=== PATIENT | female | born 1990 | race Caucasian/White ===

== ENCOUNTER 2022-12-03 06:06 | Emergency (ER) | payer BC, SELFPAY ==
[2022-12-03] VITALS (24 sets, daily range): BP systolic 144–204; BP diastolic 84–130; PULSE 76–98; RESP 9–30; TEMP 36.8; O2SAT 96–100; BMI 30.2
--- NOTE | 2022-12-03 06:36 | ED.GENADULT ---
HPI - General Adult General Chief complaint: Dizziness Stated complaint: really dizzy and shaky Time Seen by Provider: 12/03/22 06:23 Source: patient Mode of arrival: Ambulatory History of Present Illness HPI narrative: Patient is a 32-year-old female who is here for evaluation of approximately 2 weeks of symptoms that include feeling dizzy and shaky and feeling like her head is full. She states it feels like she is hung over but she is not been drinking. She states she does feel some heaviness on her chest. No shortness of breath. No nausea or vomiting. No sore throat. No sinus congestion. No abdominal pain. No skin changes. No urinary symptoms. Has not tried anything for the symptoms prior to arrival. Review of Systems Review of Systems ROS Unobtainable: All systems reviewed & are unremarkable except as noted in HPI and below Exam Initial Vital Signs Initial Vital Signs: Vital Signs Temperature 98.2 F 12/03/22 06:15 Pulse Rate 98 H 12/03/22 06:15 Respiratory Rate 16 12/03/22 06:15 Blood Pressure 189/118 H 12/03/22 06:15 Pulse Oximetry 98 12/03/22 06:15 Oxygen Delivery Method Room Air 12/03/22 06:15 Const General: cooperative, comfortable and No ill appearing HENMT Head: normal to inspection and normocephalic Resp Effort & Inspection: normal respiratory effort Auscultation: clear to auscultation bilaterally Cardio Rate: regular rate Rhythm: regular rhythm GI Inspection: normal to inspection and non-distended Palpation: soft and No tender Skin General: no rashes or lesions noted Neuro General: patient alert, patient awake and moves all extremities Cognition: normal cognition Speech: speech normal Gait: normal gait Extrem General: normal to inspection and capillary refill normal Psych Appearance: grossly normal and well kempt Scores GCS [place] coma scale eye opening: Spontaneous [place] coma scale verbal response: Orientated Course Orders Ordered: ED Orders 12/03/22 06:24 Complete Blood Count AUTO DIFF Stat Comprehensive Metabolic Panel Stat Lipase Stat Test Serum,Qual Stat EKG-12 Lead Stat Sodium Chloride (Normal Saline 0.9%) 1,000 mls @ 1,000 mls/hr IV BOLUS ONE Stop: 12/03/22 07:23 Vital Signs Vital signs: Vital Signs - 8 hr 12/03/22 06:15 Temperature 98.2 F Pulse Rate 98 H Respiratory Rate 16 Blood Pressure 189/118 H Pulse Oximetry 98 Oxygen Delivery Method Room Air Medical Decision Making MDM Narrative Medical decision making narrative: Patient has somewhat vague symptoms. No fevers. Has a nonfocal exam. I do have low suspicion for CVA/TIA. Will obtain basic labs and an EKG. Care turned over to day provider to follow-up and disposition.
[2022-12-03] MEDS: SODIUM CHLORIDE 0.9% 1,000 ML 1000 ML IV (06:45)
[2022-12-03 07:45] LABS: Pregnancy Test Serum,Qual Negative (Negative)
[2022-12-03 07:46] LABS: Add Manual Diff / Slide Review NO; Alanine Aminotransferase 20 IU/L (<35); Albumin 4.2 g/dL (3.5-5.0); Albumin Globulin Ratio 1.3 (1.0-2.8); Alkaline Phosphatase 80 U/L (38-126); Aspartate Aminotransferase 22 IU/L (14-36); BUN Creatinine Ratio 13.8 (6-22); Basophils Absolute Auto 0 /uL (0-100); Basophils Percent Auto 0.5 % (0-2); Bilirubin Total 0.5 mg/dL (0.2-1.3); Blood Urea Nitrogen 8 mg/dL (7-17); Calcium 8.9 mg/dL (8.4-10.2); Carbon Dioxide 29 mmol/L (22-32); Chloride 103 mmol/L (98-107); Eosinophils Absolute Auto 200 /uL (0-450); Eosinophils Percent Auto 2.4 % (2-4); Estimated Glomerular Filt Rate > 60 mL/min (>60); Globulin 3.2 g/dL (1.7-4.1); Glucose 103 mg/dL (70-100); HEMOLYSIS < 15 (0-50); Hematocrit 41.3 % (36-46); Hemoglobin 14.1 g/dL (12.0-16.0); Lipase 46 U/L (23-300); Lymphocytes Absolute Auto 1600 /uL (1100-4500); Lymphocytes Percent Auto 21.4 % (25-40); Mean Corpuscular HGB Conc 34.2 % (30-36); Mean Corpuscular Hemoglobin 28.9 PG (26-34); Mean Corpuscular Volume 84.5 fL (80-100); Monocytes Absolute Auto 500 /uL (0-900); Neutrophils Absolute Auto 5300 /uL (1500-7000); Neutrophils Percent Auto 69.7 % (50-75); Platelet Count 221 X10^3/uL (150-400); Potassium 3.6 mmol/L (3.4-5.1); Red Blood Cell Count 4.89 X10^6/uL (4.0-5.2); Red Cell Distribution Width 13.4 % (11.6-14.8); Sodium 136 mmol/L (137-145); Total Protein 7.4 g/dL (6.3-8.2); White Blood Cell Count 7.7 X10^3/uL (4.5-11.0)
[2022-12-03] MEDS: LABETALOL 20 MG/4 ML SYRINGE IV (09:37)
== END 2022-12-03 10:15 | disposition home or self-care (01) ==
PROVIDERS: Emergency Medicine; Emergency Provider Emergency Medicine
DX: I10 Essential (primary) hypertension (principal); R07.9 Chest pain, unspecified
CPT/HCPCS: 36415; 80053; 81003; 83690; 84703; 85025; 93005; 96361; 96374; 99284

== ENCOUNTER 2023-01-03 20:01 | Emergency (ER) | payer BC, SELFPAY ==
[2023-01-03 20:04] VITALS: BP 166/95; PULSE 117; RESP 18; TEMP 36.6; O2SAT 98; BMI 30.2
[2023-01-03 20:42] LABS: Add Manual Diff / Slide Review NO; Basophils Absolute Auto 100 /uL (0-100); Basophils Percent Auto 0.5 % (0-2); Eosinophils Absolute Auto 0 /uL (0-450); Eosinophils Percent Auto 0.2 % (2-4); Hematocrit 41.5 % (36-46); Hemoglobin 14.1 g/dL (12.0-16.0); Lymphocytes Absolute Auto 1400 /uL (1100-4500); Lymphocytes Percent Auto 7.5 % (25-40); Mean Corpuscular HGB Conc 33.8 % (30-36); Mean Corpuscular Hemoglobin 28.5 PG (26-34); Mean Corpuscular Volume 84.2 fL (80-100); Monocytes Absolute Auto 800 /uL (0-900); Monocytes Percent Auto 4.1 % (3-14); Neutrophils Absolute Auto 16400 /uL (1500-7000); Neutrophils Percent Auto 87.7 % (50-75); Platelet Count 238 X10^3/uL (150-400); Red Blood Cell Count 4.94 X10^6/uL (4.0-5.2); Red Cell Distribution Width 13.2 % (11.6-14.8); White Blood Cell Count 18.7 X10^3/uL (4.5-11.0)
[2023-01-03] MEDS: DEXAMETHASONE 10 MG/ML VIAL IV (20:42)
[2023-01-03] MEDS: KETOROLAC 30 MG/ML VIAL 15 MG IV (20:42)
[2023-01-03] MEDS: SODIUM CHLORIDE 0.9% 1,000 ML 1000 ML IV (20:42)
[2023-01-03 21:04] LABS: BUN Creatinine Ratio 14.1 (6-22); Blood Urea Nitrogen 9 mg/dL (7-17); Calcium 9.2 mg/dL (8.4-10.2); Carbon Dioxide 26 mmol/L (22-32); Chloride 100 mmol/L (98-107); Estimated Glomerular Filt Rate > 60 mL/min (>60); Glucose 153 mg/dL (70-100); HEMOLYSIS < 15 (0-50); Potassium 3.3 mmol/L (3.4-5.1); Sodium 136 mmol/L (137-145)
[2023-01-03 21:06] LABS: Strep Grp A by PCR Rapid Negative (Negative)
[2023-01-04 00:10] VITALS: BP 138/92; PULSE 92; RESP 20; O2SAT 98
[2023-01-04] MEDS: AMOXICILLIN/CLAV 875/125 MG 1 TAB PO (00:12)
[2023-01-04 00:19] LABS: Monotest Negative (Negative)
--- NOTE | 2023-01-04 00:25 | ED.URI ---
HPI - URI/Sore Throat General Chief Complaint: Upper Respiratory Symptoms Stated Complaint: sore throat/ear pain/fever Time Seen by Provider: 01/03/23 20:19 Source: patient Mode of arrival: Ambulatory History of Present Illness HPI Narrative: 32-year-old nonsmoker presents with a few days of increasing sore throat had fever. She denies runny nose or cough. She has had strep in the past and states this feels similar. She denies nausea, vomiting or diarrhea. She states it hurts to swallow but does not feel like there is anything necessarily in the way or blocking her ability to swallow Related Data Previous Rx's Medication Instructions Recorded amlodipine 10 mg tablet 10 mg PO DAILY #30 tabs 12/03/22 amoxicillin 875 mg-potassium 1 tab PO Q12H #20 tabs 01/04/23 clavulanate 125 mg tablet Allergies Allergy/AdvReac Type Severity Reaction Status Date / Time No Known Drug Allergies Allergy Verified 01/04/23 00:11 Review of Systems Review of Systems Narrative: GENERAL: See HPI HEENT: See HPI RESPIRATORY: Denies dyspnea, cough, wheezing, hemoptysis, sputum. CARDIOVASCULAR: Denies chest pain, palpitations, orthopnea, edema, GASTROINTESTINAL: Denies nausea, vomiting, abdominal pain, diarrhea, constipation, melena. : Denies dysuria, frequency, incontinence, hematuria, urinary retention. MUSCULOSKELETAL: denies weakness, joint pain, or bony pain SKIN: Denies rash, skin lesions, or other NEUROLOGIC: Denies weakness, headache, numbness, change in speech, confusion, seizures, incoordination. PSYCHIATRIC: No concerning psychosocial issues. 12 point review of systems is negative except for those stated above Patient History Social History Smoking Status: Never smoker Smoking Status: Never smoker alcohol intake frequency: holidays/special occasions only Substance Use Type: does not use Exam Narrative Exam Narrative: GENERAL: [32] year old patient appears stated age. Well-developed patient, in mild distress. HEAD: Atraumatic. Normocephalic. EYES: Pupils equal round and reactive. Extraocular motions intact. No scleral icterus. No injection or drainage. ENT: Moist mucous membranes Nose without bleeding, purulent drainage. T tonsillar swelling with erythema and exudate, no evidence of mass effect, uvular pointing or suggestion of abscess NECK: Trachea midline. Tender anterior lymphadenopathy CARDIOVASCULAR: Regular rate and rhythm without murmurs, gallops, or rubs. RESPIRATORY: Clear to auscultation. Breath sounds equal bilaterally. No wheezes, rales, or rhonchi. GASTROINTESTINAL: Abdomen soft, non-tender, nondistended. EXTREMITIES: No edema or joint tenderness. BACK: Nontender without deformity or crepitance. No flank tenderness. NEURO: AOx3. SKIN: No rash or erythema of visible areas Initial Vital Signs Initial Vital Signs: Vital Signs Temperature 97.9 F 01/03/23 20:04 Pulse Rate 117 H 01/03/23 20:04 Respiratory Rate 18 01/03/23 20:04 Blood Pressure 166/95 H 01/03/23 20:04 Pulse Oximetry 98 01/03/23 20:04 Oxygen Delivery Method Room Air 01/03/23 20:04 Course Orders Ordered: ED Orders 01/03/23 20:10 Strep Grp A by PCR Rapid Stat Throat Culture Stat 01/03/23 20:30 Basic Metabolic Panel Stat Complete Blood Count AUTO DIFF Stat 01/04/23 00:00 Monotest Stat Discontinued Medications Amoxicillin/Clavulanate Potassium (Amoxicillin/Clav 875/125 Mg) 1 tab PO NOW ONE Stop: 01/04/23 00:01 Last Admin: 01/04/23 00:12 Dose: 1 tab Documented By: CHARLINE Dexamethasone (Dexamethasone 10 Mg/Ml Vial) 10 mg IV NOW ONE Stop: 01/03/23 20:20 Last Admin: 01/03/23 20:42 Dose: 10 mg Documented By: CHARLINE Sodium Chloride (Normal Saline 0.9%) 1,000 mls @ 1,000 mls/hr IV BOLUS ONE Stop: 01/03/23 21:12 Last Infusion: 01/03/23 22:12 Dose: 0 mls/hr Documented By: Admin: 01/03/23 20:42 Dose: 1,000 mls/hr Documented By: CHARLINE Ketorolac Tromethamine (Ketorolac 30 Mg/Ml Vial) 15 mg IV NOW ONE Stop: 01/03/23 20:20 Last Admin: 01/03/23 20:42 Dose: 15 mg Documented By: CHARLINE Reevaluation(s) Reevaluation #1: patient feeling much better after above. HR down to the 80s-90s Vital Signs Vital signs: Vital Signs - 8 hr 01/03/23 20:04 01/04/23 00:10 Temperature 97.9 F Pulse Rate 117 H 92 H Respiratory Rate 18 20 Blood Pressure 166/95 H 138/92 H Pulse Oximetry 98 98 Oxygen Delivery Method Room Air Room Air MDM - URI/Sore Throat Lab Data 01/03/23 20:30 01/03/23 20:30 Labs: Lab Results 01/03/23 01/03/23 01/03/23 Range/Units 20:10 20:30 20:30 WBC 18.7 H (4.5-11.0) X10^3/uL RBC 4.94 (4.0-5.2) X10^6/uL Hgb 14.1 (12.0-16.0) g/dL Hct 41.5 (36-46) % MCV 84.2 (80-100) fL MCH 28.5 (26-34) PG MCHC 33.8 (30-36) % RDW 13.2 (11.6-14.8) % Plt Count 238 (150-400) X10^3/uL Neut % (Auto) 87.7 H (50-75) % Lymph % (Auto) 7.5 L (25-40) % [place] % (Auto) 4.1 (3-14) % Eos % (Auto) 0.2 L (2-4) % Baso % (Auto) 0.5 (0-2) % Neut # (Auto) 42274 H (1436-7557) /uL Lymph # (Auto) 1400 (7259-0035) /uL [place] # (Auto) 800 (0-900) /uL Eos # (Auto) 0 (0-450) /uL Baso # (Auto) 100 (0-100) /uL Sodium 136 L (137-145) mmol/L Potassium 3.3 L (3.4-5.1) mmol/L Chloride 100 (98-107) mmol/L Carbon Dioxide 26 (22-32) mmol/L BUN 9 (7-17) mg/dL Creatinine 0.64 (0.52-1.04) mg/dL Estimated GFR > 60 (>60) mL/min BUN/Creatinine Ratio 14.1 (6-22) Glucose 153 H (70-100) mg/dL Calcium 9.2 (8.4-10.2) mg/dL Monoscreen (Negative) Group A Strep (PCR) Negative (Negative) 01/03/23 Range/Units 20:30 WBC (4.5-11.0) X10^3/uL RBC (4.0-5.2) X10^6/uL Hgb (12.0-16.0) g/dL Hct (36-46) % MCV (80-100) fL MCH (26-34) PG MCHC (30-36) % RDW (11.6-14.8) % Plt Count (150-400) X10^3/uL Neut % (Auto) (50-75) % Lymph % (Auto) (25-40) % [place] % (Auto) (3-14) % Eos % (Auto) (2-4) % Baso % (Auto) (0-2) % Neut # (Auto) (1955-2578) /uL Lymph # (Auto) (7836-1017) /uL [place] # (Auto) (0-900) /uL Eos # (Auto) (0-450) /uL Baso # (Auto) (0-100) /uL Sodium (137-145) mmol/L Potassium (3.4-5.1) mmol/L Chloride (98-107) mmol/L Carbon Dioxide (22-32) mmol/L BUN (7-17) mg/dL Creatinine (0.52-1.04) mg/dL Estimated GFR (>60) mL/min BUN/Creatinine Ratio (6-22) Glucose (70-100) mg/dL Calcium (8.4-10.2) mg/dL Monoscreen Negative (Negative) Group A Strep (PCR) (Negative) [facility] Narrative Medical decision making narrative: [32] year old patient presents with sore throat and fever Multiple etiologies for patient's symptoms considered including, but not limited to: [Viral versus strep versus peritonsillar abscess versus other] Prior Charts reviewed in our EMR Primary Historian: patient Labs reviewed and interpreted by myself: Rapid strep negative, throat culture pending, leukocytosis with left shift, no signs of anemia, electrolytes within normal range Patient's symptoms improved over duration of stay with above-stated therapies. Pain is improved, she is tolerating orals, vitals improved Findings and discharge diagnosis discussed with patient/family followed by verbalization of understanding. Return precautions discussed with patient/family whom verbalize understanding of diagnosis and plan Discharge Plan Departure Patient Disposition: Home Clinical Impression: Acute tonsillitis Instructions: DI for Pharyngitis/Tonsillopharyngitis -- Adult Activity Restrictions/Additional Instructions: *You have been diagnosed with [acute tonsillitis. As we discussed your history and physical exam are reassuring as is your response to fluids. Your rapid strep test was negative but given your presentation it is most reasonable to start antibiotics now, a culture is pending in his likely to result in the next 2-3 days] *What to do: *Please continue to take your regular medications as directed. [x ] New medication prescriptions sent to your pharmacy: [ [facility]] [ ] New medication written as a paper prescription [ ] No new medications given *Please follow up with your primary care provider in 2-3 days, call for an appointment. Let them know you were seen in the Emergency Department and that we ask that you be seen in follow up. We will electronically transmit a record of today's note if your PCP is in our system *If you do not have a primary care provider please contact the [facility] Resource line at [phone]. They will ask some questions about your medical history and help get you set up with a doctor in the community. *Return to Emergency Department if you should have any new, worsening or concerning symptoms, such as [fever greater than 101 F, shaking chills, worsening pain, persistent vomiting or other bothersome symptoms] Prescriptions: New amoxicillin-pot clavulanate 875-125 mg tablet 1 tab PO Q12H Qty: 20 0RF No Action amlodipine 10 mg tablet 10 mg PO DAILY Qty: 30 0RF Stand Alone Forms: Patient Portal/API, Work Release Note
== END 2023-01-04 00:22 | disposition home or self-care (01) ==
PROVIDERS: Emergency Provider Emergency Medicine
DX: J03.90 Acute tonsillitis, unspecified (principal)
CPT/HCPCS: 36415; 80048; 85025; 86318; 87070; 87077; 87147; 87651; 96361; 96374; 96375; 99284; J1100; J1885

== ENCOUNTER 2023-04-27 20:13 | Emergency (ER) | payer BC, SELFPAY ==
[2023-04-27 20:20] VITALS: BP 141/97; PULSE 101; RESP 20; TEMP 37; O2SAT 98; BMI 32.3
--- NOTE | 2023-04-27 20:57 | PC.NURSE ---
lab called, confirmed receipt of sample
[2023-04-27 21:00] LABS: Strep Grp A by PCR Rapid Negative (Negative)
--- NOTE | 2023-04-27 21:12 | ED_ITS ---
HPI - URI/Sore Throat General Chief Complaint: Upper Respiratory Symptoms Stated Complaint: sore throat Time Seen by Provider: 04/27/23 21:01 Source: patient Mode of arrival: Ambulatory Limitations: no limitations History of Present Illness HPI Narrative: 32-year-old female with history of hypertension presents with sore throat some mild nasal congestion cough for the past 24 hours. Patient states no fevers. She states a little bit of minimal nasal drainage. Nonproductive cough. She states slightly hoarse but able to speak normally overall. She states tonsils are swollen and painful. Patient states no nausea or vomiting. No difficulty with breathing. No chest pain or shortness of breath, no rash, no other skin changes no swelling of extremities. Patient denies any other symptoms. No known sick contacts. Patient states only home medication is for blood pressure. Denies any drug allergies. No tobacco, occasional alcohol, no illicit. Related Data Previous Rx's Medication Instructions Recorded amlodipine 10 mg tablet 10 mg PO DAILY #30 tabs 12/03/22 amoxicillin 875 mg-potassium 1 tab PO Q12H #20 tabs 01/04/23 clavulanate 125 mg tablet Allergies Allergy/AdvReac Type Severity Reaction Status Date / Time No Known Drug Allergies Allergy Verified 01/04/23 00:11 Review of Systems Review of Systems ROS Unobtainable: All systems reviewed & are unremarkable except as noted in HPI and below Patient History Social History Smoking Status: Never smoker Smoking Status: Never smoker alcohol intake frequency: holidays/special occasions only Substance Use Type: does not use Exam Narrative Exam Narrative: GEN: well nourished, well appearing female, alert and oriented x 3, patient appears to be in mild distress. HEENT: Atraumatic, pupils are equal round reactive to light, extraocular movements are intact, nares are clear, TMs retracted bilaterally, left TM has some slight opacification in the 3 o'clock position and is retracted, with no fluid on the right, there is no conjunctival pallor. Throat is without any exudates, no erythema, bilateral tonsillar enlargement, no uvular deviation, sl ightly hoarse but overall normal speech. No muffled voice. No difficulty swallowing secretions. HEART: Regular rate and rhythm without murmur, clicks, rubs. LUNGS:Lungs clear to auscultation, no wheezes, rales, crackles, chest moves symmetrically ABD:bowel sounds normal, soft, non-tender, no guarding, rebound, rigidity, no masses noted, no hepatosplenomegaly MSCL: Non-tender, no muscle atrophy, muscles strength 5/5 upper and lower extremities, full range of motion, normal gait NEURO:CN 2-12 intact, sensation normal SKIN: No rash, erythema or other skin changes Initial Vital Signs Initial Vital Signs: Vital Signs Temperature 98.6 F 04/27/23 20:20 Pulse Rate 101 H 04/27/23 20:20 Respiratory Rate 20 04/27/23 20:20 Blood Pressure 141/97 H 04/27/23 20:20 Pulse Oximetry 98 04/27/23 20:20 Oxygen Delivery Method Room Air 04/27/23 20:20 Course Orders Ordered: ED Orders 04/27/23 20:27 Strep Grp A by PCR Rapid Stat 04/27/23 21:35 Throat Culture Stat Discontinued Medications Dexamethasone (Dexamethasone 10 Mg/Ml Vial) 10 mg PO NOW ONE Stop: 04/27/23 21:35 Last Admin: 04/27/23 21:40 Dose: 10 mg Documented By: MADISYN Vital Signs Vital signs: Vital Signs - 8 hr 04/27/23 20:20 04/27/23 21:47 Temperature 98.6 F 98.7 F Pulse Rate 101 H 89 Respiratory Rate 20 16 Blood Pressure 141/97 H 152/89 H Pulse Oximetry 98 98 Oxygen Delivery Method Room Air Room Air MDM - URI/Sore Throat Lab Data Labs: Lab Results 04/27/23 Range/Units 20:27 Group A Strep (PCR) Negative (Negative) MDM Narrative Medical decision making narrative: 32-year-old female has quite swollen tonsils but no exudate, does not meet [facility] criteria to start antibiotics with negative rapid strep. Did obtain throat culture. Discussed with patient we do have a good phone number to contact her if it is positive. We will give a dose of oral dexamethasone, discussed return precautions all questions answered. Discharge Plan Departure Patient Disposition: Home Clinical Impression: Pharyngitis Instructions: DI for Pharyngitis/Tonsillopharyngitis -- Adult Activity Restrictions/Additional Instructions: Your throat culture is pending, typically takes 48 hours to result and if positive you should be contacted to start antibiotics. You may take Tylenol up to a 1000 mg every 6 hours and/or ibuprofen up to 600 mg every 6 as needed for pain or fever. Some individuals fine gargling with warm salt water to be helpful for symptoms. Please return for rapidly worsening symptoms, difficulty with breathing, swallowing secretions or saliva, muffled voice, nausea or vomiting or other new or concerning changes. Prescriptions: No Action amlodipine 10 mg tablet 10 mg PO DAILY Qty: 30 0RF amoxicillin-pot clavulanate 875-125 mg tablet 1 tab PO Q12H Qty: 20 0RF Stand Alone Forms: Patient Portal/API
[2023-04-27] MEDS: DEXAMETHASONE 10 MG/ML VIAL PO (21:40)
[2023-04-27 21:47] VITALS: BP 152/89; PULSE 89; RESP 16; TEMP 37.1; O2SAT 98
== END 2023-04-27 21:47 | disposition home or self-care (01) ==
PROVIDERS: Emergency Provider Emergency Medicine
DX: J02.9 Acute pharyngitis, unspecified (principal)
CPT/HCPCS: 87070; 87077; 87147; 87651; 99283; J1100

== ENCOUNTER 2023-08-12 13:17 | Emergency (ER) | payer BC, SELFPAY ==
[2023-08-12 13:20] VITALS: BP 149/92; PULSE 97; RESP 18; TEMP 36.3; O2SAT 99; BMI 30.2
[2023-08-12 14:06] LABS: Bacteria Urine Many (>30); RBC Urine 10-30/HPF (0-5/HPF); Squamous Epithelial Cell Urine 5-10 /HPF (0-5/HPF); Urine Volume 10mL (spun); WBC Urine 10-30/HPF (0-5/HPF)
[2023-08-12 14:07] LABS: Mucus Urine 1+ (Negative)
--- NOTE | 2023-08-12 14:15 | ED_ITS ---
<Statement entered by Jason Angulo MD - 08/12/23 18:11> I was immediately available in the department for consultation. Documentation has been reviewed. I agree with assessment and plan. HPI - Female Genitourinary General Chief complaint: Urogenital-Female Stated complaint: has feeling to urinate but can't Time Seen by Provider: 08/12/23 13:33 Source: patient Mode of arrival: Ambulatory History of Present Illness HPI Narrative: 33-year-old female with no reported past medical history presents to the ED with 2 days of urinary frequency. Patient denies fever, chills, nausea, vomiting, dysuria, abdominal pain. Related Data Previous Rx's Medication Instructions Recorded amlodipine 10 mg tablet 10 mg PO DAILY #30 tabs 12/03/22 amoxicillin 875 mg-potassium 1 tab PO Q12H #20 tabs 01/04/23 clavulanate 125 mg tablet nitrofurantoin 100 mg PO BID 5 days #10 caps 08/12/23 monohydrate/macrocrystals 100 mg capsule (Macrobid) Allergies Allergy/AdvReac Type Severity Reaction Status Date / Time No Known Drug Allergies Allergy Verified 01/04/23 00:11 Review of Systems Constitutional Constitutional: Denies chills, Denies fatigue, Denies fever(s), Denies frequent falls, Denies lethargy and Denies weakness Eyes Eyes: Denies change in vision, Denies eye discharge, Denies irritation and Denies loss of vision ENT Ears, Nose, Mouth, and Throat: Denies change in voice, Denies dizziness, Denies neck pain, Denies sore throat and Denies throat swelling Cardiovascular Cardiovascular: Denies chest pain, Denies irregular heart rhythm, Denies lightheadedness, Denies palpitations, Denies dyspnea, Denies dyspnea on exertion and Denies orthopnea Respiratory Respiratory: Denies cough, Denies dyspnea, Denies dyspnea on exertion and Denies wheezing Gastrointestinal Gastrointestinal: Denies abdominal pain, Denies change in bowel habits, Denies diarrhea, Denies nausea and Denies vomiting Genitourinary Comments: Urinary frequency Musculoskeletal Musculoskeletal: Denies neck pain and Denies numbness Integumentary/Breasts Skin/Breast: Denies pruritus, Denies erythema, Denies rash and Denies wounds Neurologic Neurologic: Denies behavioral changes, Denies confusion, Denies dizziness, Denies frequent falls, Denies loss of vision, Denies numbness and Denies weakness Psychiatric Psychiatric: Denies anxiety, Denies behavioral changes, Denies confusion, Denies depression, Denies homicidal ideation and Denies suicidal ideation Endocrine Endocrine: Denies fatigue, Denies flushing and Denies palpitations Hematologic/Lymphatic Hematologic/Lymphatic: Denies easy bruising Allergic/Immunologic Allergic/Immunologic: Denies urticaria, Denies throat swelling and Denies wheezing Patient History alcohol intake frequency: holidays/special occasions only Substance Use Type: does not use Exam Narrative Exam Narrative: Const General:?cooperative, healthy appearing and comfortable [facility] Head:?normal to inspection Ears:?hearing grossly normal bilaterally Nose:?external nose normal Face and sinus:?normal facial exam and sinuses nontender Mouth:?oral mucosae normal Throat:?posterior oropharynx normal Eyes General:?appearance normal, both eyes and all related structures Neck Neck:?normal visual inspection and no lymphadenopathy noted Resp Effort & Inspection:?normal respiratory effort Auscultation:?clear to auscultation bilaterally Cardio Rate:?regular rate Rhythm:?regular rhythm GI No CVA tenderness Neuro General:?patient alert, patient awake and patient oriented x3 Initial Vital Signs Initial Vital Signs: Vital Signs Temperature 97.3 F L 08/12/23 13:20 Pulse Rate 97 H 08/12/23 13:20 Respiratory Rate 18 08/12/23 13:20 Blood Pressure 149/92 H 08/12/23 13:20 Pulse Oximetry 99 08/12/23 13:20 Oxygen Delivery Method Room Air 08/12/23 13:20 Course Orders Ordered: ED Orders 08/12/23 13:31 Urine Culture Stat Urine Microscopic Stat Vital Signs Vital signs: Vital Signs - 8 hr 08/12/23 13:20 Temperature 97.3 F L Pulse Rate 97 H Respiratory Rate 18 Blood Pressure 149/92 H Pulse Oximetry 99 Oxygen Delivery Method Room Air MDM - Female Genitourinary Lab Data Labs: Lab Results 08/12/23 Range/Units 13:31 Urine RBC 10-30/hpf H (0-5/HPF) Urine WBC 10-30/hpf H (0-5/HPF) Ur Squamous Epith Cells 5-10 /hpf H (0-5/HPF) Urine Bacteria Many (>30) H (None) Urine Mucus 1+ H (Negative) Vol Urine Centrifuged 10ml (spun) Urine Dip Bedside Urine Glucose Negative Bedside Urine Bilirubin - Negative Bedside Urine Ketone - Negative Urine Specific [place] 1.020 Bedside Urine Occult Blood ++ Bedside Urine pH 6.0 Bedside Urine Protein +/- 15 Bedside Urine Urobilinogen - Negative Bedside Urine Nitrite - Negative Bedside Urine Leukocytes + 70 Esterase MDM Narrative Medical decision making narrative: 33-year-old female with no reported past medical history presents to the ED with 2 days of urinary frequency. Urine positive for UTI. Will treat with antibiotics. Recommend follow-up with PCP. Recommend good hydration. ED return precautions discussed with patient. Patient verbalized understanding. Medical records reviewed: Yes Discharge Plan Departure Patient Disposition: Home Clinical Impression: Urinary tract infection Instructions: DI for Urinary Tract Infection (UTI) Activity Restrictions/Additional Instructions: You were evaluated in the ED today for frequent urination. Your urine was positive for urinary tract infection today. You are being started on antibiotics. Please take the antibiotics as prescribed. Please follow-up with your PCP as soon as possible. Please continue to stay well hydrated. Return to the ED if you have worsening symptoms, persistent vomiting, fever, chills. Prescriptions: New nitrofurantoin monohyd/m-cryst [Macrobid] 100 mg capsule 100 mg PO BID 5 Days Qty: 10 0RF Rx Instructions: must administer with a meal/food No Action amlodipine 10 mg tablet 10 mg PO DAILY Qty: 30 0RF amoxicillin-pot clavulanate 875-125 mg tablet 1 tab PO Q12H Qty: 20 0RF Stand Alone Forms: Patient Portal/API
[2023-08-12 14:28] VITALS: BP 134/75; PULSE 93; RESP 16; TEMP 36.8; O2SAT 98
== END 2023-08-12 14:30 | disposition home or self-care (01) ==
PROVIDERS: Emergency Provider Student in an Organized Health Care Education/Training Program
DX: N39.0 Urinary tract infection, site not specified (principal)
CPT/HCPCS: 81003; 81015; 87077; 87086; 87186; 99282

== ENCOUNTER 2023-08-26 12:41 | Day surgery (SDC) | payer BC, SELFPAY ==
[2023-08-24 09:25] VITALS: BMI 33.0
[2023-08-26 13:05] VITALS: BP 135/90; PULSE 104; RESP 16; TEMP 36.2; O2SAT 100; BMI 30.2
[2023-08-26] MEDS: LACTATED RINGERS 1,000 ML 42 ML IV (13:20)
[2023-08-26] MEDS: SCOPOLAMINE 1 PATCH TOP (13:23)
[2023-08-26] MEDS: ACETAMINOPHEN 325 MG TABLET 975 MG PO (13:24)
--- NOTE | 2023-08-26 14:56 | P.HP_ITS ---
History of Present Illness History of Present Illness Time Patient Seen: 14:56 Chief complaint: SDC Narrative: 33-year-old female last seen in clinic 06/02/2023 presents with her friend for scheduled tonsillectomy and possible adenoidectomy today for chronic tonsillitis upper airway obstruction tonsillar hypertrophy tonsil stones throat pain and recurrent acute tonsillitis. No significant interval health changes since last visit although 1 episode of throat pain and tonsillar hypertrophy treated with steroids in the ER, no antibiotics. She wishes to proceed. [facility] Medical History Nasal septal deviation Tonsillar hypertrophy Respiratory obstruction De Quervain's tenosynovitis Pyuria Chronic tonsillitis Surgical History No history of previous surgery Social History Smoking Status: Never smoker alcohol intake: current Meds Home Medications and Allergies Home Medications Medication Instructions Recorded Confirmed Type amlodipine 10 mg tablet 10 mg PO DAILY #30 tabs 12/03/22 08/26/23 Rx escitalopram oxalate 10 mg tablet 10 mg PO DAILY 08/24/23 08/26/23 History norethindrone (contraceptive) 0.35 35 mg PO DAILY 08/24/23 08/26/23 History mg tablet (Deblitane) Allergies Allergy/AdvReac Type Severity Reaction Status Date / Time No Known Drug Allergies Allergy Verified 08/26/23 13:05 Review of Systems Review of Systems Narrative: Negative except as listed in the HPI Exam Vital Signs (past 8 hours): - 08/26/23 13:05 Temperature 97.1 F L Pulse Rate 104 H Respiratory Rate 16 Blood Pressure 135/90 Pulse Oximetry 100 Oxygen Delivery Method Room Air Oxygen Delivery Method Room Air Narrative Exam Narrative: Well-developed well-nourished, heart regular rate and rhythm without murmur, lungs clear to auscultation bilaterally Assessment & Plan Assessment & Plan narrative: Assessment: Chronic tonsillitis, tonsil stones, upper airway obstruction sec ondary to tonsillar, possible adenoid hypertrophy, throat pain, recurrent acute tonsillitis Plan: Following discussion of the material risks benefits complications and alternatives, the patient elected to proceed.
--- NOTE | 2023-08-26 14:56 | PM.PREOP ---
Pre-operative Note Interval Note History & Physical reviewed/Exam performed by Physician: Yes Changes to H&P: No
--- NOTE | 2023-08-26 14:58 | PM.OP.1 ---
Operative Date/Time/Diagnoses Date of procedure: 08/26/23 Time of procedure: 16:03 Pre-op diagnosis: Chronic tonsillitis, tonsil stones, throat pain, recurrent acute tonsillitis, upper airway obstruction secondary to tonsil and possible adenoid hypertrophy Post-op diagnosis: same (with mild adenoid hypertrophy) Procedure & Clinicians Procedure: Tonsillectomy and adenoidectomy Same procedure as scheduled: Yes Indications: 33 Year old female with the above diagnoses incompletely managed with medical therapy presents for the above procedure. Following discussion of the material risks benefits complications and alternatives, the patient elected to proceed. Surgeon: Luis Holloway Click Yes if Unassisted: Yes Anesthesia Type: General and Local Operative Notes Findings: Intact palate, single uvula, 3 to 4+ tonsils with active inflammation, difficult exposure with increased vascularity, 2+ adenoids Estimated Blood Loss (mL): 25 Procedure in detail: Following identification and confirmation of consent the patient was brought to the operating room suite and placed in the supine position. General endotracheal anesthesia was administered. A head wrap, shoulder roll, and mouth gag were placed and a red rubber catheter was inserted through the nostril and out the mouth to retract the soft palate. Partially obstructive adenoid tissue was ablated with suction electrocautery on a setting of 40, without injury to the eustachian tube orifices or choana. The left tonsil was retracted medially and suction electrocautery on a setting of 30 was used to dissect the tonsil in a subcapsular plane, followed by hemostasis with the same. This process was repeated on the right side with identical findings. The tonsillar fossae were superficially infiltrated bilaterally with 1% lidocaine 1 100,000 epinephrine. Mouth gag and rubber catheter were removed and the patient was extubated in the operating room and taken to the recovery room in stable condition without known complication. Complications: none Post-operative Condition: stable Disposition: same day surgery Plan for aftercare: Push fluids, alternate Tylenol and Advil every 3 hours for baseline pain control, oxycodone for breakthrough pain. Soft diet 2 full weeks, no heavy lifting or straining 2 weeks.
--- NOTE | 2023-08-26 15:22 | SUR.OPER ---
Supine on padded OR bed, head on donut pillow, arms secured and tucked at side with blanket, legs uncrossed, safety belt at thigh.
[2023-08-26] MEDS: LIDOCAINE 1% W/EPI 6 ML INJ (15:26)
[2023-08-26 16:15] VITALS: BP 114/76; BP 117/80; PULSE 80; PULSE 85; RESP 12; TEMP 36.6; O2SAT 100
[2023-08-26 16:21] VITALS: BP 128/93; PULSE 92; RESP 14; O2SAT 100
[2023-08-26 16:26] VITALS: BP 136/95; PULSE 85; RESP 10; O2SAT 96
[2023-08-26 16:31] VITALS: BP 129/93; PULSE 85; RESP 14; O2SAT 99
[2023-08-26] MEDS: OXYCODONE IR 5 MG TABLET PO ×2 (16:31→17:06)
[2023-08-26] MEDS: ONDANSETRON 4 MG/2 ML INJ IV (16:31)
[2023-08-26 16:43] VITALS: BP 148/101; PULSE 82; RESP 13; O2SAT 97
== END 2023-08-26 17:12 | disposition home or self-care (01) ==
PROVIDERS: Referring Provider Otolaryngology; Visit Provider Otolaryngology
PROC: (CPT 42821; principal; 2023-08-26 13:45)
DX: J03.91 Acute recurrent tonsillitis, unspecified (principal); J35.8 Other chronic diseases of tonsils and adenoids; J98.8 Other specified respiratory disorders
CPT/HCPCS: 42821; 81025; J1100; J2250; J2405; J3010

== ENCOUNTER 2023-09-01 10:43 | Emergency (ER) | payer BC, SELFPAY ==
[2023-09-01] VITALS (7 sets, daily range): BP systolic 114–166; BP diastolic 63–107; PULSE 54–108; RESP 17; TEMP 36.2; O2SAT 94–100; BMI 30.4
--- NOTE | 2023-09-01 13:00 | ED.RECABL ---
HPI - Recheck/Abnormal Lab/Rx General Chief Complaint: Recheck/Abnormal Lab/Rx Stated Complaint: had tonsillectomy 08/25, bleeding Time Seen by Provider: 09/01/23 12:52 Mode of arrival: Ambulatory History of Present Illness HPI narrative: 33-year-old woman who had tonsils removed on August 25 was having some bleeding enough that she was tasting it down the back of throat contacted her ENT physician who recommended ER evaluation. At this point she has not actively vomiting but feels like she is still swallowing small amount fluid. She is currently on Tylenol, ibuprofen was recently started on prednisone. She is able to drink but has not had much to eat. Pain has been a significant problem. No abdominal pain, dyspnea or palpitations appreciated Related Data Home Medications Medication Instructions Recorded Confirmed escitalopram oxalate 10 mg tablet 10 mg PO DAILY 08/24/23 08/26/23 norethindrone (contraceptive) 0.35 35 mg PO DAILY 08/24/23 08/26/23 mg tablet (Deblitane) Previous Rx's Medication Instructions Recorded amlodipine 10 mg tablet 10 mg PO DAILY #30 tabs 12/03/22 Allergies Allergy/AdvReac Type Severity Reaction Status Date / Time No Known Drug Allergies Allergy Verified 09/01/23 10:51 Review of Systems Review of Systems Narrative: Pertinent positive and negative findings as per HPI Patient History Medical History Nasal septal deviation Tonsillar hypertrophy Respiratory obstruction De Quervain's tenosynovitis Pyuria Chronic tonsillitis Surgical History No history of previous surgery Social History Smoking Status: Never smoker alcohol intake: current Smoking Status: Never smoker alcohol intake frequency: holidays/special occasions only Substance Use Type: does not use Exam Initial Vital Signs Initial Vital Signs: Vital Signs Temperature 97.1 F L 09/01/23 10:51 Pulse Rate 108 H 09/01/23 10:51 Respiratory Rate 17 09/01/23 10:51 Blood Pressure 166/107 H 09/01/23 10:51 Pulse Oximetry 99 09/01/23 10:51 Oxygen Delivery Method Room Air 09/01/23 10:51 General: Appears acutely uncomfortable, slightly dehydrated, voices hoarse HEENT: Moist mucous membranes, normal sclera with reactive pupils, difficulty in opening her mouth fully secondary to pain. Eschar over left-sided tonsillar pillar appears appropriate with no obvious bleeding. I am unable to see the right side. She has no significant cervical adenopathy Respiratory: Lungs are clear to auscultation, no wheezing no rales no rhonchi. Full and symmetrical air movement Cardiac: Tachycardia with no murmurs Abdomen: Soft, nontender, good bowel tones, no flank pain Skin: Warm and dry, no rashes Neurologic: Grossly neurologically intact with no obvious asymmetries or abnormalities Extremities: No trauma, well perfused Psych: Cooperative, appropriate insight and affect Course Orders Ordered: Hydromorphone HCl (Hydromorphone 0.5 Mg Inj) 0.5 mg IV Q15MIN PRN PRN Reason: Pain, Last Admin: 09/01/23 13:24 Dose: 0.5 mg Documented By: BOB Discontinued Medications Sodium Chloride (Normal Saline 0.9%) 1,000 mls @ 1,000 mls/hr IV BOLUS ONE Stop: 09/01/23 13:59 Last Infusion: 09/01/23 14:05 Dose: Infused Documented By: Admin: 09/01/23 13:24 Dose: 1,000 mls/hr Documented By: BOB Tranexamic Acid (Tranexamic Acid 1,000 Mg Vial) 1,000 mg INH NOW ONE Stop: 09/01/23 13:01 Last Admin: 09/01/23 13:25 Dose: 1,000 mg Documented By: BOB Vital Signs Vital signs: Vital Signs - 8 hr 09/01/23 10:51 09/01/23 11:36 09/01/23 11:37 Temperature 97.1 F L Pulse Rate 108 H 54 L Respiratory Rate 17 Blood Pressure 166/107 H 114/63 Pulse Oximetry 99 94 Oxygen Delivery Method Room Air 09/01/23 11:37 Temperature Pulse Rate 57 L Respiratory Rate Blood Pressure Pulse Oximetry 100 Oxygen Delivery Method MDM - Recheck/Abnormal Lab/Rx MDM Narrative Medical decision making narrative: CC: Day 6 post tonsillectomy with concern for bleeding Data collected from: patient Differential considered: Significant postoperative bleeding, minor postoperative bleeding, postoperative pain Exam documented above, pertinent findings include: Patient appears uncomfortable, there is not severe bleeding appreciated on my exam Treatments: L of fluid, half a mg of Dilaudid, nebulized TXA to help stabilize the minor bleeding from her postoperative site Re-evaluations: Patient is feeling better. She has no longer feeling any type of small trickle of blood down the back of her throat. She has not complaining of nausea Discussion: 33-year-old woman who is 6 days postop tonsillectomy. Was concerned that there was a slight bit of blood down the back of throat. Seemed to resolve with nebulized TXA. She has not showing signs of infection. Healing appears appropriate. She is still significantly hurting but pain has been adequately controlled. The hydration certainly seemed to improve overall status. At this point there is no evidence of severe bleeding, need for operative intervention or hospitalization. Questions are answered and she is safe for discharge Discharge Plan Departure Patient Disposition: Home Clinical Impression: Post-operative haemorrhage Qualifiers: Surgical complication system/body Area: respiratory system Activity Restrictions/Additional Instructions: Thank you for coming in today I am sorry that you are having so much pain after your tonsillectomy. Unfortunately this is a very painful surgery. You do look like you are healing is appropriate. On my exam, I am not appreciating a significant amount of bleeding. The fact that you are feeling a small trickle down the back of your throat was the reason that we used nebulized tranexamic acid. Often this helps the localize bleeding from the surgical site. I am not seeing any evidence that big scab has fallen off for you are having severe bleeding that needs additional intervention or hospitalization Please continue with steroids and pain medications you have been prescribed If you find that you are getting worse or develop any new symptoms, please feel free to return to the emergency department for further evaluation. Prescriptions: No Action norethindrone (contraceptive) [Deblitane] 0.35 mg Tablet 35 mg PO DAILY escitalopram oxalate 10 mg Tablet 10 mg PO DAILY amlodipine 10 mg tablet 10 mg PO DAILY Qty: 30 0RF Stand Alone Forms: Patient Portal/API
[2023-09-01] MEDS: SODIUM CHLORIDE 0.9% 1,000 ML 1000 ML IV (13:24)
[2023-09-01] MEDS: HYDROMORPHONE 0.5 MG INJ IV (13:24)
[2023-09-01] MEDS: TRANEXAMIC ACID 1,000 MG VIAL 1000 MG INH (13:25)
== END 2023-09-01 14:51 | disposition home or self-care (01) ==
PROVIDERS: Emergency Provider Emergency Medicine
DX: J95.830 Postprocedural hemorrhage of a respiratory system organ or structure following a respiratory system procedure (principal)
CPT/HCPCS: 96374; 99283; 99284; J1170

== ENCOUNTER 2024-06-17 19:37 | Emergency (ER) | payer BC, SELFPAY ==
[2024-06-17 19:40] VITALS: BP 155/99; PULSE 112; RESP 18; TEMP 36.9; O2SAT 97; BMI 36.3
--- NOTE | 2024-06-17 20:54 | DI.RAD.S_ITS ---
PROCEDURE: XR CHEST 1V INDICATIONS: pain with inspiration, pain at left shoulder blade TECHNIQUE: One view of the chest was acquired. COMPARISON: None. FINDINGS: Surgical changes and devices: None. Lungs and pleura: Lungs are clear. No pleural effusions or pneumothorax. Mediastinum: Mediastinal contours appear normal. Heart size is normal. Bones and chest wall: No suspicious bony lesions. Overlying soft tissues appear unremarkable. IMPRESSION: No acute cardiopulmonary abnormality is seen. Dictated by: Kiesha Leary M.D. on 06/17/2024 at 21:46 Approved by: Kiesha Leary M.D. on 06/17/2024 at 21:46
[2024-06-17 21:47] LABS: Influenza A - CEPHEID Flu A NEGATIVE (NEGATIVE); Influenza B - CEPHEID Flu B NEGATIVE (NEGATIVE); Respiratory Syncytial Virus Negative (Negative)
[2024-06-17 22:03] LABS: COVID-19 CEPHEID 4-PLEX PCR Negative (Negative)
--- NOTE | 2024-06-17 22:55 | ED_ITS ---
HPI - General Adult General Chief complaint: Back Pain/Injury Stated complaint: lft shoulder px radiating up neck and down arm Time Seen by Provider: 06/17/24 22:55 Source: patient Mode of arrival: Ambulatory History of Present Illness HPI narrative: 34-year-old female left-handed has 2 days duration left rhomboid shoulder blade area discomfort, no injury recalled, worse symptoms with movement of her left upper extremity, less so with any head movements. No numbness or tingling to her left arm. No new activities recalled, no lifting or falls. She is not having relief with [id number] medications. She drove herself here today. She denies anterior chest pain, cough, shortness of breath. Related Data Home Medications Medication Instructions Recorded Confirmed escitalopram oxalate 10 mg tablet 10 mg PO DAILY 08/24/23 08/26/23 norethindrone (contraceptive) 0.35 35 mg PO DAILY 08/24/23 08/26/23 mg tablet (Deblitane) Previous Rx's Medication Instructions Recorded amlodipine 10 mg tablet 10 mg PO DAILY #30 tabs 12/03/22 methocarbamol 500 mg tablet 500 mg PO TID 7 days #21 tabs 06/17/24 Allergies Allergy/AdvReac Type Severity Reaction Status Date / Time No Known Drug Allergies Allergy Verified 09/01/23 10:51 Patient History Medical History Nasal septal deviation Tonsillar hypertrophy Respiratory obstruction De Quervain's tenosynovitis Pyuria Chronic tonsillitis Surgical History No history of previous surgery Social History Smoking Status: Never smoker alcohol intake: current Smoking Status: Never smoker alcohol intake frequency: holidays/special occasions only Exam Narrative Exam Narrative: GENERAL: Well-developed patient, in mild distress. HEAD: Atraumatic. Normocephalic. EYES: Pupils equal round and reactive. Extraocular motions intact. No scleral icterus. No injection or drainage. ENT: Nose without bleeding, purulent drainage. Throat without erythema, tonsillar hypertrophy or exudate. Airway patent. NECK: Trachea midline. Non tender CARDIOVASCULAR: Regular rate and rhythm without murmurs, gallops, or rubs. RESPIRATORY: Clear to auscultation. Breath sounds equal bilaterally. No wheezes, rales, or rhonchi. GASTROINTESTINAL: Abdomen soft, non-tender, nondistended. EXTREMITIES: Tenderness left superior rhomboid muscle that reproduces her discomfort, it is worse with movement of her left upper extremity. Less discomfort and inferior rhomboid region, also in superior left trapezius. No midline tenderness to cervical or thoracic spine or paraspinous musculature. No skin changes or rash or vesicles obvious. BACK: Nontender without deformity or crepitance. No flank tenderness. NEURO: AOx3. Motor functions grossly nonfocal SKIN: No rash or erythema of visible areas Initial Vital Signs Initial Vital Signs: Vital Signs Temperature 98.5 F 06/17/24 19:40 Pulse Rate 112 H 06/17/24 19:40 Respiratory Rate 18 06/17/24 19:40 Blood Pressure 155/99 H 06/17/24 19:40 Pulse Oximetry 97 06/17/24 19:40 Oxygen Delivery Method Room Air 06/17/24 19:40 Course Orders Ordered: ED Orders 06/17/24 20:54 Chest [XR chest 1V] Stat 06/17/24 21:00 Covid-19 + FLU A/B + RSV - PCR Stat Discontinued Medications Hydrocodone Bitart/Acetaminophen (Hydrocodone/Acet 5/325 Prepack) 1 bottle MISC DIRECTED ONE Stop: 06/17/24 23:25 Last Admin: 06/17/24 23:30 Dose: 1 bottle Documented By: MADISYN Ketorolac Tromethamine (Ketorolac 30 Mg/Ml Vial) 30 mg IM NOW ONE Stop: 06/17/24 23:24 Last Admin: 06/17/24 23:29 Dose: 30 mg Documented By: MADISYN Vital Signs Vital signs: Vital Signs - 8 hr 06/17/24 23:46 Pulse Rate 91 H Respiratory Rate 19 Blood Pressure 144/89 H Pulse Oximetry 98 Oxygen Delivery Method Room Air Medical Decision Making Lab Data Lab results reviewed: Yes I reviewed the patient's lab results. Lab results narrative: COVID/flu/RSV swab negative Labs: Lab Results 06/17/24 Range/Units 21:00 SARS-CoV-2 (PCR) Negative (Negative) Influenza A (RT-PCR) Flu a negative (NEGATIVE) Influenza B (RT-PCR) Flu b negative (NEGATIVE) RSV (PCR) Negative (Negative) Imaging Data Chest x-ray: Radiologist's Impression: [address] [id number] XRay Report Signed Patient: Jadyn Navarrete MR#: [id number] : 1990 Acct:[id number] Age/Sex: 34 / F Date of Service: 06/17/24 Loc: ED Accession Number: [id number] Procedure: XR chest 1V Ordering Provider: Mayo Borges MD PROCEDURE: XR CHEST 1V INDICATIONS: pain with inspiration, pain at left shoulder blade TECHNIQUE: One view of the chest was acquired. COMPARISON: None. FINDINGS: Surgical changes and devices: None. Lungs and pleura: Lungs are clear. No pleural effusions or pneumothorax. Mediastinum: Mediastinal contours appear normal. Heart size is normal. Bones and chest wall: No suspicious bony lesions. Overlying soft tissues appear unremarkable. IMPRESSION: No acute cardiopulmonary abnormality is seen. Dictated by: Kiesha Leary M.D. on 06/17/2024 at 21:46 Approved by: Kiesha Leary M.D. on 06/17/2024 at 21:46 [facility] Narrative Medical decision making narrative: 34-year-old left-handed female with left rhomboid area discomfort since yesterday, muscle spasm on examination, worse with movement, suspect rhomboid superior muscle strain by clinical exam and history. Screening chest x-ray was sent from triage, unremarkable, see radiology report. COVID/influenza swabs negative. Patient drove herself. IM Toradol. Home pack of hydrocodone/APAP. Prescription for muscle relaxant Robaxin/methocarbamol to be sent to her pharmacy. Consider continued use of [id number] anti-inflammatories as needed. Recheck with your regular doctor on scheduled appointment Wednesday in 3 days as planned. Return precautions discussed. Discharge Plan Departure Patient Disposition: Home Clinical Impression: Rhomboid muscle pain Instructions: DI for Muscle Strain Activity Restrictions/Additional Instructions: Nontraumatic left scapular shoulder area discomfort, tenderness on the superior left rhomboid muscle, less so on the inferior rhomboid muscle and in the superior trapezius on the left side. Screening chest x-ray sent from triage was unremarkable. COVID/influenza swabs sent from triage were also negative. You drove herself. Intramuscular Toradol anti-inflammatory given. Home pack of hydrocodone/acetaminophen to use if needed. Prescription for muscle relaxant Robaxin/methocarbamol sent to your pharmacy. You have a previously scheduled ap pointment this Wednesday in 3 days. Review symptoms then with that appointment. Return to this/nearest emergency department for any change worsening symptoms or any concerns prior Prescriptions: New methocarbamol 500 mg tablet 500 mg PO TID 7 Days Qty: 21 0RF No Action norethindrone (contraceptive) [Deblitane] 0.35 mg Tablet 35 mg PO DAILY escitalopram oxalate 10 mg Tablet 10 mg PO DAILY amlodipine 10 mg tablet 10 mg PO DAILY Qty: 30 0RF Referrals: Miscellaneous,Doctor, MD [Primary Care Provider] - Stand Alone Forms: Patient Portal/API/Survey
[2024-06-17] MEDS: KETOROLAC 30 MG/ML VIAL IM (23:29)
[2024-06-17] MEDS: HYDROCODONE/ACET 5/325 PREPACK 1 BOTTLE MISC (23:30)
[2024-06-17 23:46] VITALS: BP 144/89; PULSE 91; RESP 19; O2SAT 98
== END 2024-06-17 23:47 | disposition home or self-care (01) ==
PROVIDERS: Emergency Provider Emergency Medicine
DX: M79.12 Myalgia of auxiliary muscles, head and neck (principal)
CPT/HCPCS: 0241U; 71045; 96372; 99283; 99284; J1885